=== PATIENT | female | born 1965 | race Two or more races ===

== ENCOUNTER 2024-05-01 11:38 | Inpatient (IN) | payer OTHER ==
[~2024-05-01] VITALS: Ht 149.9 cm; Wt 70.1 kg
--- NOTE | 2024-05-01 11:59 | ED.PDOC ---
History of Present Illness HPI Comments 88-year-old female with a history of fibromyalgia brought in by self complaining of nausea and vomiting intermittently for the past 2 weeks. Patient states the symptoms transiently resolved, however returned 3 days ago. She states she has only been able to keep down a few sips of liquid and continues to have severe nausea. She denies fever, diarrhea, constipation or dysuria. 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 History Family History Family History: Reviewed,noncontributory to illness, Unknown Social History Smoker: Non-Smoker Alcohol: Denies ETOH Use Drugs: Denies Drug Use Lives In: Home Constitutional: denies: chills, diaphoresis, fatigue, fever, malaise, sweats, weakness, others EENTM: denies: blurred vision, double vision, ear bleeding, ear discharge, ear drainage, ear pain, ear ringing, eye pain, eye redness, hearing loss, mouth pain, mouth swelling, nasal discharge, nose bleeding, nose congestion, nose pain, photophobia, tearing, throat pain, throat swelling, voice changes, others Respiratory: denies: cough, hemoptysis, orthopnea, SOB at rest, shortness of breath, SOB with excertion, stridor, wheezing, others Cardiovascular: denies: chest pain, dizzy spells, diaphoresis, Dyspnea on exertion, edema, irregular heart beat, left arm pain, lightheadedness, palpitations, PND, syncope, others Gastrointestinal: reports: nausea, vomiting; denies: abdomen distended, abdominal pain, blood streaked bowels, constipated, diarrhea, dysphagia, difficulty swallowing, hematemesis, melena, poor appetite, poor fluid intake, rectal bleeding, rectal pain, others Genitourinary: denies: abnormal vagina bleeding, burning, dyspareunia, dysuria, flank pain, frequency, hematuria, incontinence, pain, , vagina discharge, urgency, others Neurological: denies: dizziness, fainting, headache, left sided numbness, left sided weakness, numbness, paresthesia, pre-existing deficit, right sided numbness, right sided weakness, seizure, speech problems, tingling, tremors, weakness, others Musculoskeletal: denies: back pain, gout, joint pain, joint swelling, muscle pain, muscle stiffness, neck pain, others Integumetry: denies: bruises, change in color, change in hair/nails, dryness, laceration, lesions, lumps, rash, wounds, others Allergic/Immunocompromised: denies: Difficulty Healing, Frequent Infections, Hives, Itching, others Hematologic/Lymphatic: denies: anemia, blood clots, easy bleeding, easy bruising, swollen glands, others Endocrine: denies: excessive hunger, excessive sweating, excessive thirst, excessive urination, flushing, intolerance to cold, intolerance to heat, unexplained weight gain, unexplained weight loss, others Psychiatric: denies: anxiety, bipolar disorder, depression, hopeless, panic disorder, schizophrenia, sleepless, suicidal, others All Other Systems: Reviewed and Negative Physical Exam General Appearance: Mild Distress HEENT: Other (Dry mucous membranes) Neck: Full Range of Motion, Normal Inspection Respiratory: Lungs Clear, No Accessory Muscle Use, No Respiratory Distress, Normal Breath Sounds Cardiovascular: No Edema, No JVD, Regular Rate/Rhythm Breast Exam: Deferred Gastrointestinal: Non Tender, Soft Genitalia: Deferred Pelvic: Deferred Rectal: Deferred Extremities: Normal inspection, Normal range of motion, Non-tender, No pedal edema Musculoskeletal : Apperance: Normal Neurologic: Alert, No Motor Deficits, Normal Affect, Normal Mood, No Sensory Deficits Cerebellar Function: NOT DONE Reflexes: NOT DONE Skin: Dry, Pallor, Warm Lymphatic: NOT DONE Was a procedure done? Was a procedure done?: No Differential Dx Considerations may include: Gastroenteritis, dehydration, electrolyte imbalance, hypovolemia, infection such as UTI, among others X-Ray, Labs, Meds, VS Vital Signs Date Time Temp Pulse Resp B/P (MAP) Pulse Ox O2 Delivery O2 Flow Rate FiO2 05/01/24 12:25 97 16 100 Room Air* 0 21 05/01/24 12:11 97.6 97 16 125/72 (89) 97 97.6 05/01/24 11:52 97.0 99 18 128/72 (90) 98 Lab Test 05/01/24 12:06 05/01/24 12:00 Range/Units White Blood Count 8.7 4.4-10.8 10^3/uL Red Blood Count 5.12 4.0-5.20 10^6/uL Hemoglobin 15.9 12.2-16.2 g/dL Hematocrit 48.4 H 36.0-46.0 % Mean Corpuscular Volume 94.5 80.0-100.0 fL Mean Corpuscular Hemoglobin 31.1 28.0-32.0 pg Mean Corpuscular Hemoglobin Concent 32.9 32.0-36.0 g/dL Red Cell Distribution Width 14.2 11.8-14.3 % Platelet Count 323 140-450 10^3/uL Mean Platelet Volume 9.8 6.9-10.8 fL Neutrophils (%) (Auto) 59.9 37.0-80.0 % Lymphocytes (%) (Auto) 30.6 10.0-50.0 % Monocytes (%) (Auto) 6.5 0.0-12.0 % Eosinophils (%) (Auto) 2.3 0.0-7.0 % Basophils (%) (Auto) 0.7 0.0-2.0 % Neutrophils # (Auto) 5.2 1.6-8.6 10 ^3/uL Lymphocytes # (Auto) 2.7 0.4-5.4 10 ^3/uL Monocytes # (Auto) 0.6 0-1.3 10 ^3/uL Eosinophils # (Auto) 0.2 0-0.8 10 ^3/uL Basophils # (Auto) 0.1 0-0.2 10 ^3/uL Nucleated Red Blood Cells 0.1 % Sodium Level 144 136-145 mmol/L Potassium Level 4.7 3.5-5.1 mmol/L Chloride Level 108 H 98-107 mmol/L Carbon Dioxide Level 29 20-31 mmol/L Anion Gap 7 5-15 Blood Urea Nitrogen 9 9-23 mg/dL Creatinine 0.53 L 0.550-1.02 mg/dL Glomerular Filtration Rate Calc 106 >90 mL/min BUN/Creatinine Ratio 17.0 10.0-20.0 Serum Glucose 107 H 74-106 mg/dL Lactic Acid Level 2.8 *H 0.4-2.0 mmol/L Calcium Level 10.7 H 8.7-10.4 mg/dL Total Bilirubin 0.7 0.2-1.0 mg/dL Aspartate Amino Transferase (AST) 27 13-40 U/L Alanine Aminotransferase (ALT) 42 H 7-40 U/L Alkaline Phosphatase 95 46-116 U/L Total Protein 7.9 5.7-8.2 g/dL Albumin 4.8 3.2-4.8 g/dL Urine Color Light-yellow Yellow Urine Clarity Clear Clear Urine pH 8.0 5.0-9.0 Urine Specific [place] 1.019 1.001-1.035 Urine Protein Negative Negative Urine Ketones Negative Negative Urine Blood Negative Negative /uL Urine Nitrite Negative Negative Urine Bilirubin Negative Negative Urine Urobilinogen Normal Negative mg/dL Urine Leukocyte Esterase 2+ Negative /uL Urine RBC 4 0 - 4 /hpf Urine WBC 12 0 - 5 /hpf Urine Squamous Epithelial Cells Few <5 /hpf Urine Bacteria None seen None Seen /hpf Urine Glucose Normal Normal mg/dL Current Medications Medications (Trade) Dose Ordered Sig/Nando Route Start Time Stop Time Status Last Admin Ondansetron HCl (Zofran) 4 mg ONCE ONCE IV 05/01/24 12:00 05/01/24 12:01 DC 05/01/24 12:22 Sodium Chloride 2,000 ml @ 1,000 mls/hr Q2H ONCE IV 05/01/24 12:00 05/01/24 13:59 05/01/24 13:41 X-Ray, Labs, Meds, VS Comment 58-year-old female with a history of fibromyalgia complaining of nausea and vomiting. Vitals remarkable for temperature 97 Exam remarkable for dry mucous membranes and pallor CBC, CMP unremarkable for any abnormality of acute significance Lactate 2.8 UA positive for leukocyte esterase and white cells indicating possible UTI Patient treated with the following in the ED: 2 L 0.9 normal saline IV bolus, Zofran 4 mg IV, Rocephin 1 g IV, Tylenol 1 g p.o. On re-evaluation, patient states nausea has improved. Plan is to admit the patient for IV hydration, IV antibiotics and lactate trend. Time of 1ST Reevaluation: 12:20 Reevaluation 1ST: Unchanged Time of 2ND Reevaluation: 13:54 Reevaluation 2ND: Improved Patient Education/Counseling: Diagnosis, Treatment, Prognosis Family Education/Counseling: No Family Present Additional Information - The following tests were ordered, and results were reviewed by me: Labs, PHA - I discussed treatments and results with medical personnel and: (consultants, family) Departure 1 Departure Time of Disposition: 13:55 Impression: Primary Impression: Nausea and vomiting Qualified Codes: R11.2 - Nausea with vomiting, unspecified Additional Impressions: Elevated lactic acid level UTI (urinary tract infection) Qualified Codes: N39.0 - Urinary tract infection, site not specified Disposition: ADMITTED INPATIENT Admit to: Med Surg Condition: Guarded Critical Care Note Critical Care Time?: No Stability Stability form required: No Heart Score Heart Score: Heart Score Response (Comments) Value History N/A 0 EKG N/A 0 Age N/A 0 Risk Factors N/A 0 Troponin N/A 0 Total 0 I personally scribed for ANTHONY ZAMORA MD ([email or web address]) on 05/01/24 at 11:58. Electronically submitted by Maciel Marrero ([email or web address]). ANTHONY ZAMORA MD May 01, 2024 11:58
[2024-05-01 12:08] LABS: Urine Bacteria None Seen /hpf (None Seen)
[2024-05-01] MEDS: ONDANSETRON HCL 4 MG/2 ML VIAL IV ONE (12:22)
[2024-05-01 12:25] VITALS: PULSE 97; RESP 16; O2SAT 100
[2024-05-01 12:30] LABS: Basophils # (auto) 0.1 10 ^3/uL (0-0.2); Basophils % (auto) 0.7 % (0.0-2.0); Eosinophils # (auto) 0.2 10 ^3/uL (0-0.8); Eosinophils % (auto) 2.3 % (0.0-7.0); Hematocrit 48.4 % (36.0-46.0); Hemoglobin 15.9 g/dL (12.2-16.2); Lymphocytes # (auto) 2.7 10 ^3/uL (0.4-5.4); Lymphocytes % (auto) 30.6 % (10.0-50.0); Mean Corpuscular Hemoglobin 31.1 pg (28.0-32.0); Mean Corpuscular Hgb Conc. 32.9 g/dL (32.0-36.0); Mean Corpuscular Volume 94.5 fL (80.0-100.0); Monocytes # (auto) 0.6 10 ^3/uL (0-1.3); Monocytes % (auto) 6.5 % (0.0-12.0); Neutrophils # (auto) 5.2 10 ^3/uL (1.6-8.6); Neutrophils % (auto) 59.9 % (37.0-80.0); Nucleated Red Blood Cells % 0.1 %; Platelet Count (auto) 323 10^3/uL (140-450); Red Blood Cells 5.12 10^6/uL (4.0-5.20); Red Cell Distribution Width 14.2 % (11.8-14.3); White Blood Cell 8.7 10^3/uL (4.4-10.8)
[2024-05-01 12:35] LABS: Urine Blood Negative /uL (Negative); Urine Clarity Clear (Clear); Urine Color Light-Yellow (Yellow); Urine Protein, UAD Negative (Negative); Urine Specific Gravity 1.019 (1.001-1.035); Urine Urobilinogen Normal (Negative); Urine WBC 12 /hpf (0 - 5)
[2024-05-01 13:10] LABS: Albumin 4.8 g/dL (3.2-4.8); Alkaline Phosphatase 95 U/L (46-116); Anion Gap 7 (5-15); Aspartate Aminotransferase 27 U/L (13-40); Blood Urea Nitrogen 9 mg/dL (9-23); Carbon Dioxide 29 mmol/L (20-31); Potassium 4.7 mmol/L (3.5-5.1); Sodium 144 mmol/L (136-145)
[2024-05-01 13:11] LABS: Bilirubin, Total 0.7 mg/dL (0.2-1.0); Total Protein 7.9 g/dL (5.7-8.2)
[2024-05-01 13:16] LABS: Alanine Aminotransferase 42 U/L (7-40); Calcium 10.7 mg/dL (8.7-10.4); Chloride 108 mmol/L (98-107); Glucose 107 mg/dL (74-106)
[2024-05-01 13:34] LABS: Lactic Acid w/Reflex 2.8 mmol/L (0.4-2.0)
[2024-05-01] MEDS: SODIUM CHLORIDE 0.9% 2,000 ML IV ONE (13:41)
[2024-05-01] MEDS: ACETAMINOPHEN 500 MG TAB PO ONE (14:19)
[2024-05-01] MEDS: cefTRIAXone 1GM/50ML D5W 50 ML IV ONE (14:19)
[2024-05-01] MEDS ORDERED: MONT-8 PO (14:49)
[2024-05-01] MEDS ORDERED: DULO1CAP6 PO (14:49)
--- NOTE | 2024-05-01 14:56 | DVHHP2 ---
History of Present Illness Reason for Visit: Nausea and vomiting History of Present Illness This 58-year-old female with past medical history of fibromyalgia presents in the ED with a chief complaint of nausea and vomiting for the past two weeks. The patient states nausea and vomiting has resolved however returned three days ago. The patient reports able to keep oral intake without vomiting. Denies fever, chills, hematemesis, abdominal pain, constipation, or diarrhea. Denies illicit drugs, EtOH, or tobacco use. Past Medical History As stated in HPI Past Surgical History Cholecystectomy Hernia repair Devon hoffmann Family History Reviewed, non-contributory to the management of this case. Past Social History The patient lives at home, denies smoking, alcohol or illicit drugs abuse. Review of Systems Constitutional: Yes: Malaise; No: Fever, Chills, Sweats, Weakness, Other Eyes: No: Pain, Vision change, Conjunctivae inflammation, Eyelid inflammation, Other, Redness ENT: No: Ear pain, Ear discharge, Nose pain, Nose discharge, Nose congestion, Mouth pain, Mouth swelling, Throat pain, Throat swelling, Other Respiratory: No: Cough, Dry, Shortness of breath, SOB with excertion, Wheezing, Hemoptysis, Pleuritic Pain, Sputum, Wheezing, Other Cardiovascular: No: Chest Pain, Palpitations, Orthopnea, Paroxysmal Noc. Dyspnea, Edema, Lt Headedness, Other Gastrointestinal: Nausea, Vomiting; No: Abdominal Pain, Diarrhea, Constipation, Melena, Hematochezia, Other Genitourinary: No Dysuria, No Frequency, No Incontinence, No Hematuria, No Retention, No Other Musculoskeletal: No: other, neck pain, shoulder pain, arm pain, back pain, hand pain, leg pain, foot pain Skin: No: Rash, Lesions, Jaundice, Bruising, Other Neurological: No: Weakness, Numbness, Incoordination, Change in speech, Confusion, Seizures, Other Allergies: Coded Allergies: NO KNOWN ALLERGIES (Unverified , 05/01/24) Exam Vital Signs Vital Signs Date Time Temp Pulse Resp B/P (MAP) Pulse Ox O2 Delivery O2 Flow Rate FiO2 05/01/24 12:25 97 16 100 Room Air* 0 21 05/01/24 12:11 97.6 125/72 (89) 97.6 General Appearance: Alert, Oriented X3, Cooperative, moderate distress HEENT: Atraumatic, PERRLA, Other (Dry mucous membrane) Respiratory: Clear to auscultation, Normal air movement Cardiovascular: Regular rate, Normal S1, Normal S2 Abdominal: Normal bowel sounds, Soft, No tenderness, No hepatospenomegaly Extremities: No clubbing, No cyanosis, No edema, Normal pulses, No tenderness/swelling Skin: No rashes, No breakdown, No significant lesion Neuro: Normal gait, Normal speech, Strength at 5/5 X4 ext, Normal tone Psych/Mental Status: Mental status NL Labs/Xrays Labs Test 05/01/24 12:06 05/01/24 12:00 Range/Units White Blood Count 8.7 4.4-10.8 10^3/uL Red Blood Count 5.12 4.0-5.20 10^6/uL Hemoglobin 15.9 12.2-16.2 g/dL Hematocrit 48.4 H 36.0-46.0 % Mean Corpuscular Volume 94.5 80.0-100.0 fL Mean Corpuscular Hemoglobin 31.1 28.0-32.0 pg Mean Corpuscular Hemoglobin Concent 32.9 32.0-36.0 g/dL Red Cell Distribution Width 14.2 11.8-14.3 % Platelet Count 323 140-450 10^3/uL Mean Platelet Volume 9.8 6.9-10.8 fL Neutrophils (%) (Auto) 59.9 37.0-80.0 % Lymphocytes (%) (Auto) 30.6 10.0-50.0 % Monocytes (%) (Auto) 6.5 0.0-12.0 % Eosinophils (%) (Auto) 2.3 0.0-7.0 % Basophils (%) (Auto) 0.7 0.0-2.0 % Neutrophils # (Auto) 5.2 1.6-8.6 10 ^3/uL Lymphocytes # (Auto) 2.7 0.4-5.4 10 ^3/uL Monocytes # (Auto) 0.6 0-1.3 10 ^3/uL Eosinophils # (Auto) 0.2 0-0.8 10 ^3/uL Basophils # (Auto) 0.1 0-0.2 10 ^3/uL Nucleated Red Blood Cells 0.1 % Sodium Level 144 136-145 mmol/L Potassium Level 4.7 3.5-5.1 mmol/L Chloride Level 108 H 98-107 mmol/L Carbon Dioxide Level 29 20-31 mmol/L Anion Gap 7 5-15 Blood Urea Nitrogen 9 9-23 mg/dL Creatinine 0.53 L 0.550-1.02 mg/dL Glomerular Filtration Rate Calc 106 >90 mL/min BUN/Creatinine Ratio 17.0 10.0-20.0 Serum Glucose 107 H 74-106 mg/dL Lactic Acid Level 2.8 *H 0.4-2.0 mmol/L Calcium Level 10.7 H 8.7-10.4 mg/dL Total Bilirubin 0.7 0.2-1.0 mg/dL Aspartate Amino Transferase (AST) 27 13-40 U/L Alanine Aminotransferase (ALT) 42 H 7-40 U/L Alkaline Phosphatase 95 46-116 U/L Total Protein 7.9 5.7-8.2 g/dL Albumin 4.8 3.2-4.8 g/dL Urine Color Light-yellow Yellow Urine Clarity Clear Clear Urine pH 8.0 5.0-9.0 Urine Specific [place] 1.019 1.001-1.035 Urine Protein Negative Negative Urine Ketones Negative Negative Urine Blood Negative Negative /uL Urine Nitrite Negative Negative Urine Bilirubin Negative Negative Urine Urobilinogen Normal Negative mg/dL Urine Leukocyte Esterase 2+ Negative /uL Urine RBC 4 0 - 4 /hpf Urine WBC 12 0 - 5 /hpf Urine Squamous Epithelial Cells Few <5 /hpf Urine Bacteria None seen None Seen /hpf Urine Glucose Normal Normal mg/dL Assessment/Plan Assessment/Plan # Rule out sepsis # UTI # lactic acidosis # nausea vomiting Admit to medical unit Empiric antibiotic ceftriaxone Blood in urine culture IV fluid Antiemetics PPI Clear liquid diet advance as tolerated # fibromyalgia Duloxetine Medical plan discussed with patient Plan discussed with: Patient My Orders Orders - KRISTAN DUNHAM [employer]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
[2024-05-01] MEDS: SODIUM CHLORIDE 0.9% 1,000 ML IV ONE (17:33)
[2024-05-01 17:59] VITALS: BP 142/81; PULSE 85; RESP 18; TEMP 98.3; O2SAT 99
[2024-05-01 18:24] VITALS: BP 142/81; PULSE 85; RESP 18; TEMP 98.3; O2SAT 99
[2024-05-01 20:00] VITALS: PULSE 80; RESP 18; O2SAT 97
[2024-05-01] MEDS: ONDANSETRON HCL 4 MG/2 ML VIAL IV PRN (20:13)
[2024-05-01 21:00] VITALS: BP 135/65; PULSE 80; RESP 18; TEMP 97.6; O2SAT 98
[2024-05-02] VITALS (8 sets, daily range): BP systolic 125–142; BP diastolic 57–75; PULSE 77–91; RESP 16–18; TEMP 94.5–98.1; O2SAT 96–98
[2024-05-02] MEDS: MELATONIN 5 MG TAB PO ONE (00:41)
[2024-05-02 06:15] LABS: Basophils # (auto) 0.1 10 ^3/uL (0-0.2); Basophils % (auto) 0.9 % (0.0-2.0); Eosinophils # (auto) 0.2 10 ^3/uL (0-0.8); Eosinophils % (auto) 2.6 % (0.0-7.0); Hematocrit 42.3 % (36.0-46.0); Hemoglobin 14.4 g/dL (12.2-16.2); Lymphocytes # (auto) 2.1 10 ^3/uL (0.4-5.4); Lymphocytes % (auto) 28.7 % (10.0-50.0); Mean Corpuscular Hemoglobin 31.7 pg (28.0-32.0); Mean Corpuscular Hgb Conc. 33.9 g/dL (32.0-36.0); Mean Corpuscular Volume 93.4 fL (80.0-100.0); Monocytes # (auto) 0.5 10 ^3/uL (0-1.3); Monocytes % (auto) 6.6 % (0.0-12.0); Neutrophils # (auto) 4.4 10 ^3/uL (1.6-8.6); Neutrophils % (auto) 61.2 % (37.0-80.0); Nucleated Red Blood Cells % 0.2 %; Platelet Count (auto) 226 10^3/uL (140-450); Red Blood Cells 4.53 10^6/uL (4.0-5.20); Red Cell Distribution Width 13.7 % (11.8-14.3); White Blood Cell 7.2 10^3/uL (4.4-10.8)
[2024-05-02 06:41] LABS: Albumin 4.2 g/dL (3.2-4.8); Alkaline Phosphatase 80 U/L (46-116); Anion Gap 10 (5-15); Aspartate Aminotransferase 30 U/L (13-40); Bilirubin, Total 0.9 mg/dL (0.2-1.0); Calcium 9.9 mg/dL (8.7-10.4); Carbon Dioxide 22 mmol/L (20-31); Glucose 97 mg/dL (74-106); Potassium 3.9 mmol/L (3.5-5.1); Sodium 142 mmol/L (136-145); Total Protein 6.7 g/dL (5.7-8.2)
[2024-05-02 06:46] LABS: Alanine Aminotransferase 41 U/L (7-40); BUN/Creatinine Ratio 10.9 (10.0-20.0); Blood Urea Nitrogen < 5 mg/dL (9-23); Chloride 110 mmol/L (98-107)
[2024-05-02] MEDS: PANTOPRAZOLE 40 MG/10 ML VIAL INJ IV SCH (09:15)
[2024-05-02] MEDS: MONTELUKAST SODIUM 10 MG TAB PO SCH (09:15)
[2024-05-02] MEDS: cefTRIAXone 1GM/50ML D5W 50 ML IV SCH (09:15)
[2024-05-02] MEDS: DULoxetine HCL 30 MG CAP PO SCH (09:15)
--- NOTE | 2024-05-02 14:02 | DVHPNRES ---
Progress Note Date Seen: May 02, 2024 Resident Creating Document: CESAR OLIVEROS RESIDENT Medical Necessity Reason Pt with a Central, PICC or Fol: No Medical Necessity Reason Nausea and vomiting for 3 days Subjective Review of Systems This is a 58-year-old female with past medical history of fibromyalgia presented to the ED with a chief complaint of nausea and vomiting that started 2 weeks ago. According to the patient, 2 weeks ago, she started having nausea and vomiting which subsided without any medical interventions. However, just this past thursday, patient mentioned that she started having similiar symptoms but worse than she had previously felt. Thus prompting her to come to the ED. She denied ingestion of raw food; she She is menopausal for the past15 years; however she did mentioned that she has had few abdominal surgeries notably cholecystectomy, , hernia repair, and abdominoplasty. Initial vitals were grossly unremarkable blood pressure was slightly elevated at 128/77. Chemistry revealed elevated lactic 2 2.8--> 2.4, ALT: 42 and UA positive for leukocyte esterase. Constitutional: Denies fever no chills; feeling of malaise HEENT: Denies headache, ear pain, ear discharges, conjunctivitis, nasal discharge throat pain Cardiovascular: Denies chest pain, palpitation, orthopnea, PND, or pedal edema Respiratory: Denies shortness of breath, cough cough, sputum production, hemoptysis, GI: nausea and vomiting; Denies abdominal pain, diarrhea, hematemesis, hematochezia, : Denies frequency, urgency, hematuria, Endocrine: Denies unintentional weight gain or weight loss, feeling of hot flashes, Sharath: Denies easy bruising, bleeding disorders,epistaxis Musculoskeletal: Denies joint pains, muscle aches Psych: No evidence of depression, jesus, suicidal ideation Past Medical History: Fibromyalgia Past Surgical History: Cholecystectomy, , Hernia repair, Abdominoplasty Family History: Reviewed, non-contributory to the management of this case. Past Social History: lives with son at home, denies smoking, alcohol or illicit drugs abuse. Objective vital signs Vital Sign Date Time Temp Pulse Resp B/P (MAP) Pulse Ox O2 Delivery O2 Flow Rate FiO2 05/02/24 13:13 98.0 81 17 136/75 (95) 96 98.0 05/02/24 08:10 Room Air* 0 21 Total Intake and Output 05/01/24 05/01/24 05/02/24 15:00 23:00 07:00 Intake Total 1550 ml Balance 1550 ml medications Current Medications Medications Dose Ordered Sig/Nando Route Start Time Stop Time Status Last Admin Dose Admin Ceftriaxone Sodium 50 ml @ 100 mls/hr DAILY@09 IV 05/02/24 09:00 05/02/24 09:15 100 MLS/HR Pantoprazole Sodium 40 mg DAILY IV 05/02/24 10:00 05/02/24 09:15 40 MG Ondansetron HCl 4 mg Q4HP PRN IV 05/01/24 15:00 05/01/24 20:13 4 MG Montelukast Sodium 10 mg DAILY PO 05/02/24 10:00 05/02/24 09:15 10 MG Duloxetine HCl 60 mg DAILY PO 05/02/24 10:00 05/02/24 09:15 60 MG Examination General examination- Not in acute distress, HEENT: PEERLA, no acute nasal discharge Chest: S1-S2 audible, rate and rhythm regular, no murmur Lung: CTAB, no wheeze or rhonchi Abdomen: Nondistend, BS+, nontenderness, no organomegaly Musculoskeletal: no acute joint swelling or tenderness Lower extremity: no leg edema Neurological: cranial nerves intact, no acute dysarthria or dysphagia Psychiatry-- Normal mood and affect Skin- no acute rash or purpura laboratory and microbiology Laboratory Tests 05/02/24 05:34 Test 05/02/24 05:34 Range/Units Serum Glucose 97 74-106 mg/dL Problem List/Assessment/Plan Problem List/Assessment/Plan Possible gastroenteritis -->Zofran --> oral feeds and good hydration Urinary tract infection --> leukocyte esterase positive --> Ceftriaxone --> IV maintenance fluid Lactic acidosis- --> lactic acid 2.8--> 2.4--> 1.3 --> IV hydration Prediabetes --> Hgb a1c: 5.8 --> lifestyle and diet modification Mildly elevated transaminitis --> ALT --> monitor elevation daily Fibromyalgia --> continue home regime History of abdominoplasty History of choecystectomy Code status: Full Goal of care discussed for more than 30 minutes Case and plan discussed with Dr. Leroy Plan discussed with: Patient Date of Service: May 02, 2024 Billing Provider: GIOVANNA MURPHY MD Common Visit Codes: [id number] INP/OBS CARE(HIGH) CESAR OLIVEROS RESIDENT May 02, 2024 14:02 GIOVANNA MURPHY MD May 08, 2024 23:57
[2024-05-02 21:38] LABS: Amphetamine Screen, Urine Neg (NEGATIVE); Barbiturate Scree,Urine Neg (NEGATIVE); Benzodiazephine Screen, Urine Neg (NEGATIVE); Cannabinoid Screen, Urine Neg (NEGATIVE); Cocaine Screen, Urine Neg (NEGATIVE); Opiate Scree,Urine Neg (NEGATIVE); Phencyclidine Screen, Urine Neg (NEGATIVE)
[2024-05-03] MEDS: MELATONIN 5 MG TAB PO PRN (00:42)
[2024-05-03 05:00] VITALS: BP 110/61; PULSE 80; RESP 16; TEMP 98.4; O2SAT 96
[2024-05-03 08:10] VITALS: O2SAT 97
[2024-05-03 09:00] VITALS: BP 103/63; PULSE 80; RESP 18; TEMP 98.2; O2SAT 93
[2024-05-03] MEDS ORDERED: CEPH250C PO (10:34)
[2024-05-03 12:30] VITALS: BP 122/71; PULSE 135; RESP 20; TEMP 97.7; O2SAT 98
--- NOTE | 2024-05-03 14:29 | DVHDSRES ---
Discharge Summary Date of Admission Resident Creating Document: CESAR OLIVEROS RESIDENT May 01, 2024 at 14:49 Date of Discharge: May 03, 2024 Admitting Diagnosis intermittent Nausea and vomiting Labs/Diagnostic Data: Laboratory Results Test 05/02/24 20:15 05/02/24 11:17 05/02/24 05:34 05/01/24 12:00 Urine Opiates Screen Neg (NEGATIVE) Urine Fentanyl Screen Neg (NEGATIVE) Urine Barbiturates Screen Neg (NEGATIVE) Urine Phencyclidine Screen Neg (NEGATIVE) Urine Amphetamines Screen Neg (NEGATIVE) Urine Benzodiazepines Screen Neg (NEGATIVE) Urine Cocaine Screen Neg (NEGATIVE) Urine Cannabinoids Screen Neg (NEGATIVE) Hemoglobin A1c 5.8 % A1C (<5.7) Lactic Acid Level 1.3 mmol/L (0.4-2.0) White Blood Count 7.2 10^3/uL (4.4-10.8) Red Blood Count 4.53 10^6/uL (4.0-5.20) Hemoglobin 14.4 g/dL (12.2-16.2) Hematocrit 42.3 % (36.0-46.0) Mean Corpuscular Volume 93.4 fL (80.0-100.0) Mean Corpuscular Hemoglobin 31.7 pg (28.0-32.0) Mean Corpuscular Hemoglobin Concent 33.9 g/dL (32.0-36.0) Red Cell Distribution Width 13.7 % (11.8-14.3) Platelet Count 226 10^3/uL (140-450) Mean Platelet Volume 9.7 fL (6.9-10.8) Neutrophils (%) (Auto) 61.2 % (37.0-80.0) Lymphocytes (%) (Auto) 28.7 % (10.0-50.0) Monocytes (%) (Auto) 6.6 % (0.0-12.0) Eosinophils (%) (Auto) 2.6 % (0.0-7.0) Basophils (%) (Auto) 0.9 % (0.0-2.0) Neutrophils # (Auto) 4.4 10 ^3/uL (1.6-8.6) Lymphocytes # (Auto) 2.1 10 ^3/uL (0.4-5.4) Monocytes # (Auto) 0.5 10 ^3/uL (0-1.3) Eosinophils # (Auto) 0.2 10 ^3/uL (0-0.8) Basophils # (Auto) 0.1 10 ^3/uL (0-0.2) Nucleated Red Blood Cells 0.2 % Sodium Level 142 mmol/L (136-145) Potassium Level 3.9 mmol/L (3.5-5.1) Chloride Level 110 mmol/L (98-107) Carbon Dioxide Level 22 mmol/L (20-31) Anion Gap 10 (5-15) Blood Urea Nitrogen < 5 mg/dL (9-23) Creatinine 0.46 mg/dL (0.550-1.02) Glomerular Filtration Rate Calc 110 mL/min (>90) BUN/Creatinine Ratio 10.9 (10.0-20.0) Serum Glucose 97 mg/dL (74-106) Calcium Level 9.9 mg/dL (8.7-10.4) Total Bilirubin 0.9 mg/dL (0.2-1.0) Aspartate Amino Transferase (AST) 30 U/L (13-40) Alanine Aminotransferase (ALT) 41 U/L (7-40) Alkaline Phosphatase 80 U/L (46-116) Total Protein 6.7 g/dL (5.7-8.2) Albumin 4.2 g/dL (3.2-4.8) Urine Color Light-yellow (Yellow) Urine Clarity Clear (Clear) Urine pH 8.0 (5.0-9.0) Urine Specific [place] 1.019 (1.001-1.035) Urine Protein Negative (Negative) Urine Ketones Negative (Negative) Urine Blood Negative /uL (Negative) Urine Nitrite Negative (Negative) Urine Bilirubin Negative (Negative) Urine Urobilinogen Normal mg/dL (Negative) Urine Leukocyte Esterase 2+ /uL (Negative) Urine RBC 4 /hpf (0 - 4) Urine WBC 12 /hpf (0 - 5) Urine Squamous Epithelial Cells Few /hpf (<5) Urine Bacteria None seen /hpf (None Seen) Urine Glucose Normal mg/dL (Normal) Other Laboratory Tests 05/02/24 05:34 Brief Hx & Hospital Course: This 58-year-old female with past medical history of fibromyalgia presented to the ED on 05/01/2024 with a chief complaint of nausea and vomiting that started 2 weeks ago. According to the patient, 2 weeks ago, she started having nausea and vomiting which subsided without any medical interventions. However, just this past thursday, patient mentioned that she started having similar symptoms but worse than she had previously felt. Thus prompting her to come to the ED. She denied ingestion of raw food; She is menopausal for the past15 years; however she did mentioned that she has had few abdominal surgeries notably cholecystectomy, and abdominoplasty The patient's urinalysis was positive for UTI, CMP was unremarkable, hemoglobin A1c 5.8, and lactic acid was within normal. Overall patient is stable. It is likely the nausea and vomiting might from possible gastroenteritis or the UTI. She is currently stable for discharge. Examination General examination- Not in acute distress, HEENT: [place], no acute nasal discharge Chest: S1-S2 audible, rate and rhythm regular, no murmur Lung: CTAB, no wheeze or rhonchi Abdomen: Nondistend, BS+, nontenderness, no organomegaly Musculoskeletal: no acute joint swelling or tenderness Lower extremity: no leg edema Neurological: cranial nerves intact, no acute dysarthria or dysphagia Psychiatry-- Normal mood and affect Skin- no acute rash or purpura Diagnoses Possible gastroenteritis UTI P to diabetes Lactic acidosis Fibromyalgia From our medical standpoint, patient is stable for discharge. She is going home with Cephalexin 250mg BID Case and discharge plan discussed with Dr. Leroy Condition at Discharge: Good Final Diagnosis/Problems List Possible gastroenteritis UTI Lactic acidosis fibromyalgia prediabetes Discharge Disposition: Home Discharge Instruct/Medications Diet: Regular Activity: No Restrictions, As Tolerated Follow Up/Referral: [facility] Medications: continue home meds as prescribed Discharge Statement: "Patient was advised to return to the ER or call 911 if any headaches, dizziness, shortness of breath, chest pain, abdominal pain, bleeding, fevers, or worsening of medical condition. Patient was counseled about treatment plan, medications, possible side effects, patientverbalized understanding. All questions were answered to the best of my ability. This discharge took greater then 30 minutes in planning, reviewing documentation, counseling the patient, and discussing with other team members." ASSESSMENT ASSESSMENT Assessment uti Date of Service: May 03, 2024 Billing Provider: GIOVANNA MURPHY MD Common Visit Codes: 09231-CWK/OBS DISCH DAY >30min CESAR OLIVEROS RESIDENT May 03, 2024 14:29 GIOVANNA MURPHY MD May 08, 2024 23:51
== END 2024-05-03 17:46 | disposition home or self-care (01) | DRG 463 ==
LOC: ER 11:38 → OVERFLOW 14:49 → CENTRAL 17:46
PROVIDERS: ADMIT Student in an Organized Health Care Education/Training Program; ATTEND Student in an Organized Health Care Education/Training Program
DX: N30.01 Acute cystitis with hematuria (principal); A04.9 Bacterial intestinal infection, unspecified; E87.20 Acidosis, unspecified; M79.7 Fibromyalgia; R73.03 Prediabetes; Z79.899 Other long term (current) drug therapy; Z90.49 Acquired absence of other specified parts of digestive tract
CPT/HCPCS: 36415; 80053; 80307; 81001; 83036; 83605; 85025; 87040; 87086; G0378; J2405; J2470